=== PATIENT | male | born 1985 | race African-American/Black ===

== ENCOUNTER 2024-03-16 19:46 | Emergency (ER) | payer BC ==
[~2024-03-16] VITALS: Ht 190.5 cm; Wt 131.8 kg
[2024-03-16 19:50] VITALS: BP 175/99; PULSE 98; RESP 20; TEMP 98.2; O2SAT 98
== END 2024-03-16 21:29 | disposition left against medical advice (07) ==
LOC: ER 19:46
DX: R21 Rash and other nonspecific skin eruption (principal); Z53.21 Procedure and treatment not carried out due to patient leaving prior to being seen by health care provider; Z91.09 Other allergy status, other than to drugs and biological substances